=== PATIENT | male | born 1995 | race Caucasian/White ===

== ENCOUNTER 2018-03-01 21:58 | Emergency (ER) | payer OTHER ==
[~2018-03-01] VITALS: Ht 182.8 cm; Wt 99.8 kg
[~2018-03-01 21:58] MED LIST: BACTROBAN CREAM15 GM T; LIDEX 0.05% CRE15 GM T
[2018-03-01] MEDS ORDERED: SEPTDS PO (22:18)
== END 2018-03-01 22:21 | disposition home or self-care (01) ==
LOC: ED 21:58
DX: T63.391A Toxic effect of venom of other spider, accidental (unintentional), initial encounter (principal); Y92.9 Unspecified place or not applicable

== ENCOUNTER 2018-03-04 21:47 | Emergency (ER) | payer OTHER ==
[~2018-03-04] VITALS: Ht 182.8 cm; Wt 99.8 kg
[~2018-03-04 21:47] MED LIST changes: +SEPTDS PO
[2018-03-04] MEDS ORDERED: CEPHALEXIN500 M1 PO (22:30)
== END 2018-03-04 22:46 | disposition home or self-care (01) ==
LOC: ED 21:47
DX: L27.0 Generalized skin eruption due to drugs and medicaments taken internally (principal); T37.0X5A Adverse effect of sulfonamides, initial encounter; Z88.2 Allergy status to sulfonamides; Y92.9 Unspecified place or not applicable

== ENCOUNTER 2018-09-22 17:02 | Emergency (ER) | payer OTHER ==
[~2018-09-22] VITALS: Ht 180.3 cm; Wt 104.3 kg
[~2018-09-22 17:02] MED LIST changes: +CEPHALEXIN500 M1 PO
[2018-09-22] MEDS ORDERED: AUGMENTIN 875-875 MG PO (18:30)
== END 2018-09-22 18:34 | disposition home or self-care (01) ==
LOC: ED 17:02
DX: J32.9 Chronic sinusitis, unspecified (principal); J02.9 Acute pharyngitis, unspecified; Z88.2 Allergy status to sulfonamides